=== PATIENT | female | born 1990 ===

== ENCOUNTER 2019-07-11 09:59 | Outpatient (CLI) | payer OTHER ==
[~2019-07-11] VITALS: Ht 162.6 cm; Wt 88.6 kg
[2019-07-11 10:28] LABS: MICROSCOPIC INDICATED
[2019-07-11 10:30] VITALS: BP 118/68
== END 2019-07-11 12:03 | disposition home or self-care (01) ==
LOC: LDOP 09:59
PROVIDERS: ATTEND Obstetrics & Gynecology Maternal & Fetal Medicine
DX: O26.893 Other specified pregnancy related conditions, third trimester (principal); R10.9 Unspecified abdominal pain; Z3A.35 35 weeks gestation of pregnancy
CPT/HCPCS: 59025; 76819; 81001; 87086; 99201; G0463